=== PATIENT | female | born 1950 | race Caucasian/White ===

== ENCOUNTER 2016-12-11 00:58 | Emergency (ER) | payer MEDICARE ==
[~2016-12-11] VITALS: Ht 162.6 cm; Wt 96.2 kg
[2016-12-11 01:25] LABS: BILIRUBIN,URINE NEGATIVE (NEG); GLUCOSE,URINE NEGATIVE (NEG); NITRITE,URINE NEGATIVE (NEG); PH,URINE 6.5; PROTEIN,URINE NEGATIVE (NEG-TRACE); UROBILINOGEN,URINE 0.2 mg/dL (0.2 mg/dL)
[2016-12-11] MEDS ORDERED: IV NORMAL SALINE 1000ML BAG 1,000 ML IV SCH (01:30)
[2016-12-11] MEDS ORDERED: HYDROMORPHONE 2 MG/ML VIAL. IV ONE ×2 (01:30→03:00)
[2016-12-11] MEDS ORDERED: ONDANSETRON PF 4 MG/2 ML VIAL. IV ONE (01:30)
[2016-12-11] MEDS ORDERED: KETOROLAC 15 MG/ML VIAL. IV ONE (01:30)
[2016-12-11 01:43] LABS: BASO # 0.1 x10^3/uL (0.0-0.2); BASO % 1 % (0-3); EOS % 1 % (0-3); HEMATOCRIT 42.8 % (36.0-47.0); HEMOGLOBIN 13.8 g/dL (12.0-15.5); LYMPH # 1.6 x10^3/uL (1.0-4.8); LYMPH % 13 % (24-48); MEAN CORPUSCULAR HEMOGLOBIN 29 pg (25-35); MEAN CORPUSCULAR HGB CONC 32 g/dL (31-37); MEAN CORPUSCULAR VOLUME 89 fL (79-100); MONO % 4 % (0-9); NEUT % 82 % (31-73); PLATELET COUNT 275 x10^3/uL (140-400); RED BLOOD COUNT 4.84 x10^6/uL (3.50-5.40); WHITE BLOOD COUNT 12.9 x10^3/uL (4.0-11.0)
[2016-12-11 01:43] LABS: BACTERIA,URINE FEW /HPF (0-FEW); SQUAMOUS EPITHELIAL CELL,UR MANY /LPF
--- NOTE | 2016-12-11 01:49 | RAD ---
PROCEDURE CT abdomen and pelvis without contrast HISTORY right flank pain x [address] scan of the abdomen and pelvis was done without intravenous contrast. One or more of the following individualized dose reduction techniques were utilized for this examination: 1. Automated exposure control; 2. Adjustment of the mA and/or kV according to patient size; 3. Use of iterative reconstruction technique. COMPARISON None FINDINGS There is a moderate size hiatus hernia. There is a posterior right diaphragmatic hernia. The lung bases are clear. There is no effusion. A liver lesion is not identified. There is slight in homogeneity of the gallbladder gallstones are possible ultrasound would be of benefit. Spleen and adrenal glands are normal. Pancreas is unremarkable. There is a small cyst in the left kidney. There is no renal mass or hydronephrosis or calculus. A ureteral calculus is not identified. There is no free air or ascites. There is no bowel obstruction. The appendix is not specifically identified. Uterus is normal. Ovaries are not optimally seen. There is a possible lesion in the pelvis but is more likely bowel loops matted together more difficult to evaluate without contrast. There is a small femoral hernia on the right: IMPRESSION Small hernia right groin. Ovaries are poorly identified. Density in the right side of the pelvis is probably grouping of bowel loops but poorly . Appendix is not specifically identified. Diverticulosis of colon without definite diverticulitis. Electronically signed by: Killian Ross MD (Dec 11, 2016 01:47:47)
[2016-12-11 02:07] LABS: CALCIUM 9.4 mg/dL (8.5-10.1); CREATININE 0.8 mg/dL (0.6-1.0); GFR 71.5; POTASSIUM 3.8 mmol/L (3.5-5.1)
[2016-12-11 02:13] LABS: ALBUMIN 3.6 g/dL (3.4-5.0); TOTAL BILIRUBIN 0.4 mg/dL (0.2-1.0); TOTAL PROTEIN 7.1 g/dL (6.4-8.2)
[2016-12-11] MEDS ORDERED: LEVO500T38 PO (02:39)
[2016-12-11] MEDS ORDERED: OXYC-323 PO (02:39)
--- NOTE | 2016-12-11 02:39 | PHYS DOC ---
Past Medical History Past Medical History: Hypertension Past Surgical History: Appendectomy, Oophorectomy Additional Past Surgical Histo: breast bx Alcohol Use: None Drug Use: None Adult General Chief Complaint Chief Complaint: FLANK PAIN HPI HPI Patient is a 66 year old female who presents to the ER today complaining of right groin and right flank pain that started approximately 3 hours ago. Patient reports that she's had similar pains on and off for several months now however tonight she started feeling slightly nauseous so she came to the ER. Patient denies any fevers shakes chills. Patient reports significant nausea but no vomiting or diarrhea. Patient denies any dysuria frequency or urgency. Patient has hematuria. Patient reports her last by mouth intake was approximate 6 PM without any problems. Patient reports she has no history of diabetes heart failure COPD. Patient does have a history of hypertension. Patient does smoke. Patient is allergic to penicillin. Patient denies any bloody stools. Patient denies any dark black stools. Patient denies any abdominal pain other than in her right groin region. Patient's physical exam was remarkable for right abdominal pain as well as right flank pain. Patient has no rebound or guarding. 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 Patient is not exhibiting any signs or symptoms consistent with an acute surgical abdomen. Patient's physical exam is not consistent with appendicitis. Patient's physical exam was appreciable for an incarcerated femoral hernia. Patient's ER workup consisted of labs which were all unremarkable except for UA that was positive for some red blood cells as well as some white blood cells and bacteria. Patient's CT scan revealed a small right groin hernia, diverticulosis without diverticulitis. No overt evidence of appendicitis. Patient is currently feeling much improved after the pain medicines. Patient is requesting 1 more dose of pain medicines before she goes home so that she can sleep. Patient reports that her pain is currently very well controlled and she feels very comfortable with the plan to be discharged home. Patient will be discharged home on Levaquin to assist with a urinary tract infection as well as Percocet to assist with the pain if it comes back. Patient was instructed to follow-up with her primary care doctor for further evaluation. Patient was also instructed to return the ER if she has any other concerns or if the pain returns. Review of Systems Review of Systems Utilizing shared decision making the plan was to discharge the patient home per her request. Constitutional: Denies fever or chills [] Eyes: Denies change in visual acuity, redness, or eye pain [] HENT: Denies nasal congestion or sore throat [] All other review systems are negative except as documented in the history of present illness portion. Current Medications Current Medications Current Medications Medications (Trade) Dose Ordered Sig/Zafar Start Time Stop Time Status Last Admin Dose Admin Hydromorphone HCl (Dilaudid) 0.5 mg 1X ONCE 12/11/16 01:30 12/11/16 01:31 DC 12/11/16 01:37 0.5 MG Ketorolac Tromethamine (Toradol) 15 mg 1X ONCE 12/11/16 01:30 12/11/16 01:31 DC 12/11/16 01:40 15 MG Ondansetron HCl (Zofran) 4 mg 1X ONCE 12/11/16 01:30 12/11/16 01:31 DC 12/11/16 01:33 4 MG Sodium Chloride (Iv Sodium Chloride 0.9% 1000ml Bag) 1,000 ml @ 1,000 mls/hr Q1H 12/11/16 01:30 12/11/16 02:29 DC 12/11/16 01:31 1,000 MLS/HR Allergies Allergies Allergies Coded Allergies Type Severity Reaction Last Updated Verified Penicillins Allergy Intermediate 12/11/16 Yes Physical Exam Physical Exam Constitutional: Well developed, well nourished, no acute distress, non-toxic appearance. [] HENT: Normocephalic, atraumatic, bilateral external ears normal, oropharynx moist, no oral exudates, nose normal. [] Eyes: PERRLA, EOMI, conjunctiva normal, no discharge. [] Neck: Normal range of motion, no tenderness, supple, no stridor. [] Cardiovascular:Heart rate regular rhythm, no murmur [] Lungs & Thorax: Bilateral breath sounds clear to auscultation [] Skin: Warm, dry, no erythema, no rash. [] Back: Tenderness to palpation. Right flank Extremities: No tenderness, no cyanosis, no clubbing, ROM intact, no edema. [] Neurologic: Alert and oriented X 3, normal motor function, normal sensory function, no focal deficits noted. [] Psychologic: Affect normal, judgement normal, mood normal. [] Current Patient Data Vital Signs Vital Signs Date Time Temp Pulse Resp B/P Pulse Ox O2 Delivery O2 Flow Rate FiO2 12/11/16 02:10 87 157/74 94 Room Air 12/11/16 01:37 18 12/11/16 01:08 97.9 97.9 Lab Values Laboratory Tests Test 12/11/16 01:10 12/11/16 01:12 12/11/16 01:30 Urine Collection Type Unknown Urine Color Yellow Urine Clarity Clear Urine pH 6.5 Urine Specific [place] 1.015 Urine Protein Negativemg/dL (NEG-TRACE) Urine Glucose (UA) Negativemg/dL (NEG) Urine Ketones (Stick) Negativemg/dL (NEG) Urine Blood Trace (NEG) Urine Nitrite Negative (NEG) Urine Bilirubin Negative (NEG) Urine Urobilinogen Dipstick 0.2mg/dL (0.2 mg/dL) Urine Leukocyte Esterase Negative (NEG) Urine RBC 6-10/HPF (0-2) Urine WBC 5-10/HPF (0-4) Urine Squamous Epithelial Cells Many/LPF Urine Bacteria Few/HPF (0-FEW) White Blood Count 12.9x10^3/uL (4.0-11.0) H Red Blood Count 4.84x10^6/uL (3.50-5.40) Hemoglobin 13.8g/dL (12.0-15.5) Hematocrit 42.8% (36.0-47.0) Mean Corpuscular Volume 89fL (79-100) Mean Corpuscular Hemoglobin 29pg (25-35) Mean Corpuscular Hemoglobin Concent 32g/dL (31-37) Red Cell Distribution Width 14.0% (11.5-14.5) Platelet Count 275x10^3/uL (140-400) Neutrophils (%) (Auto) 82% (31-73) H Lymphocytes (%) (Auto) 13% (24-48) L Monocytes (%) (Auto) 4% (0-9) Eosinophils (%) (Auto) 1% (0-3) Basophils (%) (Auto) 1% (0-3) Neutrophils # (Auto) 10.7x10^3uL (1.8-7.7) H Lymphocytes # (Auto) 1.6x10^3/uL (1.0-4.8) Monocytes # (Auto) 0.5x10^3/uL (0.0-1.1) Eosinophils # (Auto) 0.1x10^3/uL (0.0-0.7) Basophils # (Auto) 0.1x10^3/uL (0.0-0.2) Sodium Level 143mmol/L (136-145) Potassium Level 3.8mmol/L (3.5-5.1) Chloride Level 103mmol/L (98-107) Carbon Dioxide Level 29mmol/L (21-32) Anion Gap 11 (6-14) Blood Urea Nitrogen 17mg/dL (7-20) Creatinine 0.8mg/dL (0.6-1.0) Estimated GFR (Cockcroft-Gault) 71.5 BUN/Creatinine Ratio 21 (6-20) H Glucose Level 132mg/dL (70-99) H Calcium Level 9.4mg/dL (8.5-10.1) Total Bilirubin 0.4mg/dL (0.2-1.0) Aspartate Amino Transferase (AST) 19U/L (15-37) Alanine Aminotransferase (ALT) 25U/L (14-59) Alkaline Phosphatase 91U/L (46-116) Total Protein 7.1g/dL (6.4-8.2) Albumin 3.6g/dL (3.4-5.0) Albumin/Globulin Ratio 1.0 (1.0-1.7) Laboratory Tests 12/11/16 01:12 Laboratory Tests 12/11/16 01:30 EKG EKG [] Radiology/Procedures Radiology/Procedures [] Course & Med Decision Making Course & Med Decision Making Pertinent Labs and Imaging studies reviewed. (See chart for details) [] Dragon Disclaimer Dragon Disclaimer This electronic medical record was generated, in whole or in part, using a voice recognition dictation system. Departure Departure Impression: Primary Impression: Urinary tract infection Additional Impressions: Diverticulosis Right groin hernia Hiatal hernia Disposition: HOME, SELF-CARE Condition: IMPROVED Referrals: KHALIF HERNÁNDEZ (PCP) Patient Instructions: Abdominal Pain (Nonspecific), Urinary Tract Infection Scripts Levofloxacin (Levaquin)500 Mg Tablet1 Tab PO DAILY #7 TAB Prov:MARIS SOLANO MD 12/11/16 Oxycodone/Apap 5-325 (Percocet 5-325 Mg Tablet)1 Each Tablet1 Tab PO Q6-8HRS PRN PAIN #20 TAB Prov:MARIS SOLANO MD 12/11/16 Problem Qualifiers MARIS SOLANO MD Dec 11, 2016 02:39
[2016-12-11 02:45] VITALS: BP 139/96
[2016-12-11] MEDS ORDERED: LEVOFLOXACIN 500 MG TABLET PO ONE (03:00)
== END 2016-12-11 02:58 | disposition home or self-care (01) ==
LOC: ER 00:58
DX: N39.0 Urinary tract infection, site not specified (principal); K57.30 Diverticulosis of large intestine without perforation or abscess without bleeding; K45.8 Other specified abdominal hernia without obstruction or gangrene; K44.9 Diaphragmatic hernia without obstruction or gangrene; I10 Essential (primary) hypertension; F17.200 Nicotine dependence, unspecified, uncomplicated; Z90.49 Acquired absence of other specified parts of digestive tract; Z90.721 Acquired absence of ovaries, unilateral; Z88.0 Allergy status to penicillin
CPT/HCPCS: 36415; 74176; 80053; 81001; 85027; 87086; 96361; 96374; 96375; 96376; 99285; J1170; J1885; J2405; J7030